=== PATIENT | male | born 1990 | race Caucasian/White ===

== ENCOUNTER 2017-12-24 22:02 | Emergency (ER) | payer OTHER ==
[~2017-12-24] VITALS: Ht 172.7 cm; Wt 110.2 kg
[~2017-12-24 22:02] MED LIST: BUTALB-ACETAMI1 EACH
[2017-12-24] MEDS ORDERED: METOCLOPRAMIDE HCL 10 MG/2ML VIAL IV ONE (22:45)
[2017-12-24] MEDS ORDERED: DIPHENHYDRAMINE HCL INJ 50 MG/ML VIAL IV ONE (22:45)
[2017-12-24] MEDS ORDERED: SODIUM CHLORIDE 0.9% 1000ML 1,000 ML IV SCH (22:45)
[2017-12-24] MEDS ORDERED: DEXAMETHASONE SOD PHOS 10 MG/1 ML VIAL IV ONE (22:45)
[2017-12-24] MEDS ORDERED: IBUPROFEN 400 MG TAB PO ONE (22:45)
[2017-12-24] MEDS ORDERED: AZITHROMYCIN 250 MG TAB PO STA (23:53)
[2017-12-25 00:10] VITALS: BP 125/69
== END 2017-12-25 00:15 | disposition home or self-care (01) ==
LOC: FSED 22:02
DX: G43.009 Migraine without aura, not intractable, without status migrainosus (principal); J02.0 Streptococcal pharyngitis; D72.829 Elevated white blood cell count, unspecified
CPT/HCPCS: 71046; 80053; 81003; 83518; 85025; 87400; 93005; 96360; 96374; 99284; J1200; J2765

== ENCOUNTER 2019-01-04 20:20 | Emergency (ER) | payer OTHER ==
[~2019-01-04] VITALS: Ht 172.7 cm; Wt 107.5 kg
== END 2019-01-04 20:43 | disposition left against medical advice (07) ==
LOC: ER 20:20
DX: M25.561 Pain in right knee (principal)

== ENCOUNTER 2020-07-04 18:07 | Emergency (ER) | payer OTHER ==
[~2020-07-04] VITALS: Ht 172.7 cm; Wt 111.1 kg
[2020-07-04] MEDS ORDERED: METOCLOPRAMIDE HCL 10 MG/2ML VIAL IV ONE (18:30)
[2020-07-04] MEDS ORDERED: SODIUM CHLORIDE 0.9% 1000ML 1,000 ML IV SCH (18:30)
[2020-07-04] MEDS ORDERED: DIPHENHYDRAMINE HCL 25 MG CAP PO ONE (18:30)
--- NOTE | 2020-07-04 18:36 | Emergency Department Note ---
History of Present Illnes History of Present Illness Chief Complaint: General Medicine Complaints History of Present Illness This is a 30 year old male Chief Complaint Comment PATIENT IN FROM HOME WITH COMPLAINTS OF MIGRAINE AND NOSEBLEED SINCE 1700; PATIENT WITH A HISTORY OF MIGRAINES. PATIENT ALERT AND ORIENTED, RESP EVEN AND NONLABORED, APPEARS IN NO DISTRESS, RATES PAIN 8/10. Historian: Patient, Embroidery Specialist/EMS Arrival Mode: HFD Onset (how long ago): hour(s) (1) Location: Frontal head Radiation: Reports non-radiation Severity: severe Onset quality: gradual Duration (how long): day(s) Timing of current episode: constant Progression: worsening Chronicity: recurrent Context: Denies recent illness, Denies recent surgery Relieving factors: none Exacerbating factors: none Associated symptoms: Reports denies other symptoms Treatments prior to arrival: none Past Medical/Family History Physician Review I have reviewed the patient's past medical and family history. Any updates have been documented here. Past Medical History Recent Fever: No Clinical Suspicion of Infectio: No New/Unexplained Change in Ment: No Past Medical History: Asthma, Migraines Other Medical History: heart murmur (diagnosis as child) Past Surgical History: None Social History Physically hurt or threatened: No Other Last Tetanus: UTD Review of Systems Review of Systems Constitutional: Reports no symptoms EENTM: Reports no symptoms Cardiovascular: Reports no symptoms Respiratory: Reports no symptoms Gastrointestinal: Reports no symptoms Genitourinary: Reports no symptoms Musculoskeletal: Reports no symptoms Integumentary: Reports no symptoms Neurological: Reports as per HPI, Reports other (R hand numbness) Psychological: Reports no symptoms Endocrine: Reports no symptoms Hematological/Lymphatic: Reports no symptoms Physical Exam Related Data Allergies: Coded Allergies: amoxicillin (Unverified Allergy, Unknown, rash, 07/04/20) clavulanic acid (Unverified Allergy, Unknown, rash, 07/04/20) aspirin (Unverified Adverse Reaction, Unknown, high blood pressure, 07/04/20) Triage Vital Signs Vital Signs Date Time Temp Pulse Resp B/P (MAP) Pulse Ox O2 Delivery O2 Flow Rate FiO2 07/04/20 18:10 98.0 86 20 131/81 97 Room Air Vital signs reviewed: Yes Physical Exam CONSTITUTIONAL Constitutional: Present well-developed, Present well-nourished HENT HENT: Present normocephalic, Present atraumatic, Present oropharynx clear/moist, Present nose normal HENT L/R: Present left ext ear normal, Present right ext ear normal EYES Eyes: Reports PERRL, Reports conjunctivae normal NECK Neck: Present ROM normal PULMONARY Pulmonary: Present effort normal, Present breath sounds normal CARDIOVASCULAR Cardiovascular: Present regular rhythm, Present heart sounds normal, Present capillary refill normal, Present normal rate GASTROINTESTINAL Abdominal: Present soft, Present nontender, Present bowel sounds normal GENITOURINARY Genitourinary: Present exam deferred SKIN Skin: Present warm, Present dry MUSCULOSKELETAL Musculoskeletal: Present ROM normal NEUROLOGICAL Neurological: Present alert, Present oriented x 3, Present sensory deficit (decreased sensation to R hand. Resolved after Ocampo cocktail); Absent cranial nerve deficit, Absent abnormal coordination, Absent weakness PSYCHOLOGICAL Psychological: Present mood/affect normal, Present judgement normal Results Laboratory Lab results reviewed: Yes Imaging Imaging results reviewed: Yes Diagnostics Tests Diagnostic test(s) reviewed: Yes Assessment & Plan Medical Decision Making MDM 30 y.o M presents for headache and R hand numbness. 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 Exam shows R hand numbness but intact ROM and strength. Ct brain benign. Labs benign. Symptoms resolved with OCAMPO cocktail. Discussed management with patient and he would like to go home. He has a neurologist and will f/u w/ him. Patient appropriate for DC. Reassessment Reassessment time: 19:57 Reassessment Pain improved Assessment & Plan Final Impression: (1) Migraine Depart Disposition: HOME, SELF-CARE Last Vital Signs Date Time Temp Pulse Resp B/P (MAP) Pulse Ox O2 Delivery O2 Flow Rate FiO2 07/04/20 18:10 98.0 86 20 131/81 97 Room Air Home Meds Reported Medications Butalb/Acetaminophen/Caffeine ([id number] [id number]) 1 Each Tablet, Q4HR PRN for HEADACHE 02/01/16 Medications in the ED Metoclopramide HCl 10 mg ONCE ONCE IV ; Start 07/04/20 at 18:30; Stop 07/04/20 at 18:31; Status UNV Diphenhydramine HCl 25 mg ONCE ONCE PO ; Start 07/04/20 at 18:30; Stop 07/04/20 at 18:31; Status UNV Ketorolac Tromethamine 15 mg ONCE STAT IV ; Start 07/04/20 at 18:30; Stop 07/04/20 at 18:31; Status UNV Sodium Chloride 1,000 ml @ 0 mls/hr Q0M IV ; Start 07/04/20 at 18:30; Stop 07/04/20 at 19:29; Status UNV MILLIE BENZ MD Jul 04, 2020 18:36
[2020-07-04] MEDS ORDERED: KETOROLAC TROMETHAMINE 30 MG/ML VIAL IV STA (18:39)
[2020-07-04 19:08] LABS: BASOPHILS # (AUTO) 0.1 (0.0-0.1); BASOPHILS % 0.8 % (0.0-1.0); EOSINOPHILS # (AUTO) 0.2 (0.0-0.4); EOSINOPHILS % 1.7 % (0.0-6.0); HEMATOCRIT 45.6 % (38.2-49.6); LYMPHOCYTES # (AUTO) 3.1 (1.0-3.2); LYMPHOCYTES % 30.3 % (18.0-39.1); MEAN CORPUSCULAR HEMOGLOBIN 29.2 pg (28-32); MEAN CORPUSCULAR HGB CONC 35.1 g/dL (31-35); MEAN CORPUSCULAR VOLUME 83.2 fL (81-99); MONOCYTES # (AUTO) 0.8 (0.2-0.8); MONOCYTES % 8.1 % (4.4-11.3); NEUTROPHILS % 58.8 % (38.7-80.0); PLATELET COUNT 267 x10e3/uL (140-360); RED BLOOD COUNT 5.48 x10e6/uL (4.3-5.7); RED CELL DISTRIBUTION WIDTH 13.5 % (11.7-14.4)
[2020-07-04 19:13] LABS: INR 0.94; PROTHROMBIN TIME 13.1 seconds (11.9-14.5)
[2020-07-04 19:20] LABS: ALANINE AMINOTRANSFERASE 41 IU/L (0-55); ALBUMIN 4.2 g/dL (3.5-5.0); ALBUMIN/GLOBULIN RATIO 1.4 (0.8-2.0); ALKALINE PHOSPHATASE 68 IU/L (40-150); ANION GAP 13.8 mmol/L (8-16); BLOOD UREA NITROGEN 19 mg/dL (7-26); BUN/CREATININE RATIO 19 (6-25); CALCIUM 9.5 mg/dL (8.4-10.2); CARBON DIOXIDE 26 mmol/L (22-29); CHLORIDE 105 mmol/L (98-107); CREATININE, SERUM 1.02 mg/dL (0.72-1.25); EST GLOMERULAR FILTRATION RATE > 60 ML/MIN (60-); GLUCOSE 88 mg/dL (74-118); POTASSIUM 3.8 mmol/L (3.5-5.1); SODIUM 141 mmol/L (136-145)
--- NOTE | 2020-07-04 19:21 | Diagnostic Imaging Report ---
Examination: CT BRAIN WO History:^N ^R hand numbness ^[id number] ^1830 Comparison studies:None Technique: Axial images were obtained from the skull base to the vertex. Coronal and sagittal images reconstructed from the axial data. Dose modulation, iterative reconstruction, and/or weight based adjustment of the mA/kV was utilized to reduce the radiation dose to as low as reasonably achievable. Intravenous contrast: None Findings: Scalp: No abnormalities. Bones: No fractures, blastic or lytic lesions. Brain sulci: Appropriate for age. Ventricles: Normal in size and configuration. No hydrocephalus. Extra-axial space: No abnormalities. Parenchyma: Unchanged mild asymmetry of the temporal horns. No masses, hemorrhage, or acute or chronic cortical based vascular insults.. Sellar/suprasellar region: No abnormalities. Craniocervical junction: Patent foramen magnum. No Chiari one malformation. Incidental findings: None. Impression: No intracranial abnormalities. Signed by: Dr. Sylvia Hearn M.D. on 07/04/2020 7:17 PM
[2020-07-04 21:11] VITALS: BP 126/69
== END 2020-07-04 21:00 | disposition home or self-care (01) ==
LOC: ER 18:18
DX: G43.909 Migraine, unspecified, not intractable, without status migrainosus (principal); R20.0 Anesthesia of skin; J45.909 Unspecified asthma, uncomplicated
CPT/HCPCS: 36415; 70450; 80053; 84484; 85025; 85610; 93005; 99284; J1885; J2765; J7030

== ENCOUNTER 2020-10-31 18:47 | Emergency (ER) | payer OTHER ==
[~2020-10-31] VITALS: Ht 172.7 cm; Wt 111.1 kg
== END 2020-10-31 20:00 | disposition home or self-care (01) ==
LOC: ER 19:51
DX: M79.661 Pain in right lower leg (principal); M79.89 Other specified soft tissue disorders; J45.909 Unspecified asthma, uncomplicated
CPT/HCPCS: 93971; 99283